=== PATIENT | female | born 1960 | race Caucasian/White ===

== ENCOUNTER 2020-05-25 23:51 | Emergency (ER) | payer SELFPAY ==
[2020-05-25] MEDS ORDERED: diphenhydrAMINE HCL 50 MG/ML VIAL ONE (23:57)
[2020-05-25] MEDS ORDERED: methylPREDNISolone SODIUM SUC 125 MG/2 ML VIAL ONE (23:57)
[2020-05-25] MEDS ORDERED: diphenhydrAMINE HCL 50 MG/ML VIAL IV ONE (23:57)
[2020-05-25] MEDS ORDERED: methylPREDNISolone SODIUM SUC 125 MG/2 ML VIAL IV ONE (23:57)
[2020-05-26] MEDS ORDERED: SODIUM CHLORIDE 0.9% (FLUSH) 10 ML SYG ONE
[2020-05-26 03:38] VITALS: O2SAT 97
[2020-05-26] MEDS ORDERED: MONTELUKAST 10 MG TAB PO ONE (03:40)
[2020-05-26] MEDS ORDERED: predniSONE 20 MG TAB PO ONE (03:40)
[2020-05-26] MEDS ORDERED: FAMOTIDINE 20 MG TAB PO ONE (03:41)
--- NOTE | 2020-05-26 03:42 | ED.PDOC ---
History of Present Illness - General Chief Complaint: General Stated Complaint: swollen tongue Time Seen by Provider: 05/25/20 23:57 Source: patient Exam Limitations: no limitations - History of Present Illness Initial Comments: The patient is a 60-year-old female presented emergency room with what appears to be significant new onset angioedema of the left side of the tongue. The patient does take lisinopril. She has been on this medication for some time. No associated urticaria. No real shortness of breath but she does have some difficulty with swallowing. Speech is of course slurred. The swelling appears to have started around 7 PM tonight. She has not taken anything that she is known to be allergic to today. Timing/Duration: 4-6 hours Severity: moderate Improving Factors: nothing Worsening Factors: nothing Associated Symptoms: denies symptoms Allergies/Adverse Reactions: Allergies Levofloxacin [From Levaquin] Allergy (Verified 05/26/20 00:56) Lisinopril Allergy (Verified 05/26/20 00:56) angioedema Home Medications: Ambulatory Orders Famotidine [Pepcid Tab] 20 mg PO BID #14 tab 05/26/20 Montelukast [Singulair] 10 mg PO DAILY #10 tab 05/26/20 predniSONE [Prednisone] 80 mg PO DAILY #7 day 05/26/20 Review of Systems - Review of Systems Constitutional: States: no symptoms reported EENTM: States: see HPI Respiratory: States: no symptoms reported Cardiology: States: no symptoms reported Gastrointestinal/Abdominal: States: no symptoms reported Genitourinary: States: no symptoms reported Musculoskeletal: States: no symptoms reported Skin: States: no symptoms reported Neurological: States: no symptoms reported Endocrine: States: no symptoms reported Hematologic/Lymphatic: States: no symptoms reported All other Systems: No Change from Baseline Past Medical History (General) - Patient Medical History Hx Seizures: No Hx Stroke: No Hx Dementia: No Hx Asthma: No Hx of COPD: No Hx Cardiac Disorders: No Hx Congestive Heart Failure: No Hx Pacemaker: No Hx Hypertension: Yes Hx Thyroid Disease: No Hx Diabetes: No Hx Gastroesophageal Reflux: Yes Hx Renal Disease: No Hx Cancer: No Hx of HIV: No Hx Hepatitis C: No Hx MRSA: No Surgical History: Hysterectomy - Vaccination History Hx Tetanus, Diphtheria Vaccination: Yes Hx Influenza Vaccination: No Hx Pneumococcal Vaccination: Yes - Social History Hx Tobacco Use: Yes Hx Alcohol Use: No Family Medical History - Family History Mother Family History: Unknown Physical Exam - Physical Exam General Appearance: Alert, Anxious Eye Exam: bilateral normal Ears, Nose, Throat: hearing grossly normal, other - Significant angioedema to the left side of the tongue. 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, alert, normal mood/affect, oriented x 3 Skin Exam: normal color Comments: Vital Signs - 24 hr 05/25/20 05/26/20 05/26/20 23:54 01:00 02:00 Temperature 96.0 F L Pulse Rate [ 62 63 74 monitor] Respiratory 16 18 18 Rate Blood Pressure 144/86 115/79 131/74 [Left Arm] O2 Sat by Pulse 96 98 96 Oximetry 05/26/20 03:00 Temperature Pulse Rate [ 76 monitor] Respiratory 16 Rate Blood Pressure 133/87 [Left Arm] O2 Sat by Pulse 97 Oximetry Progress - Progress Progress: 05/26/20 03:45 The patient is a 60-year-old female presents emergency room secondary to the onset of angioedema to the left side of the tongue starting approximately 4 to 5 hours prior to arrival. The patient is on lisinopril and this will have to be discontinued. The patient was started on Solu-Medrol and IV Benadryl. This did seem to stop the progression of the angioedema and in fact, over 4 hours we do see some mild regression. No evidence of pulmonary involvement or involvement of the throat. No evidence of hypoxia or increased work of breathing. The patient has been given oral doses of Pepcid, Singulair, prednisone and Benadryl prior to discharge. I do want her to continue dosing on the Pepcid, Singulair and prednisone for the next week. I do want her to take Benadryl 25 mg every 4 hours today and then switch to Zyrtec 10 mg twice a day for the next week. Again she is to discontinue lisinopril. The patient is to return to the emergency room for any worsening whatsoever. Avoid overheating. She is to avoid environmental allergens that she knows of. The patient does understand the plan. She has agreed to the plan. I do want her to follow back up with her primary care doctor within 48 hours. [email or web address] [id number] Departure - Departure Clinical Impression: Angioedema Qualifiers: Encounter type: initial encounter Qualified Code(s): T78.3XXA - Angioneurotic edema, initial encounter Disposition: Discharge to Home or Self Care Condition: Fair Departure Forms: ED Discharge - Pt. Copy, Patient Portal Self Enrollment Instructions: Angioedema (DC) Diet: other - Liquid diet for the next few days. Activity: increase activity as tolerated Referrals: Braulio Barrera MD [Primary Care Provider] - 1-2 Weeks Prescriptions: Famotidine [Pepcid Tab] 20 mg PO BID #14 tab predniSONE [Prednisone] 80 mg PO DAILY #7 day Montelukast [Singulair] 10 mg PO DAILY #10 tab Home Medications: Ambulatory Orders Famotidine [Pepcid Tab] 20 mg PO BID #14 tab 05/26/20 Montelukast [Singulair] 10 mg PO DAILY #10 tab 05/26/20 predniSONE [Prednisone] 80 mg PO DAILY #7 day 05/26/20 Additional Instructions: The patient is a 60-year-old female presents emergency room secondary to the onset of angioedema to the left side of the tongue starting approximately 4 to 5 hours prior to arrival. The patient is on lisinopril and this will have to be discontinued. The patient was started on Solu-Medrol and IV Benadryl. This did seem to stop the progression of the angioedema and in fact, over 4 hours we do see some mild regression. No evidence of pulmonary involvement or involvement of the throat. No evidence of hypoxia or increased work of breathing. The patient has been given oral doses of Pepcid, Singulair, prednisone and Benadryl prior to discharge. I do want her to continue dosing on the Pepcid, Singulair and prednisone for the next week. I do want her to take Benadryl 25 mg every 4 hours today and then switch to Zyrtec 10 mg twice a day for the next week. Again she is to discontinue lisinopril. The patient is to return to the emergency room for any worsening whatsoever. Avoid overheating. She is to avoid environmental allergens that she knows of. The patient does u nderstand the plan. She has agreed to the plan. I do want her to follow back up with her primary care doctor within 48 hours.
[2020-05-26] MEDS: diphenhydrAMINE HCL 25 MG CAP PO ONE ×2 (03:50→03:51)
[2020-05-26 04:03] VITALS: BP 125/84; TEMP 97.9
== END 2020-05-26 04:05 | disposition home or self-care (01) ==
LOC: ER 23:51
DX: T78.3XXA Angioneurotic edema, initial encounter (principal); I10 Essential (primary) hypertension; K21.9 Gastro-esophageal reflux disease without esophagitis; Z88.8 Allergy status to other drugs, medicaments and biological substances; Z79.899 Other long term (current) drug therapy
CPT/HCPCS: A4216; J1200; J2930; J7512; Q0163